=== PATIENT | female | born 1960 | race Caucasian/White ===

== ENCOUNTER 2018-07-03 23:04 | Outpatient (CLI) | payer OTHER ==
--- NOTE | 2018-07-04 11:22 | DI ---
EXAM: Radiographs, right forearm HISTORY: Initial presentation for right arm trauma. COMPARISON: None available. TECHNIQUE: Two views. FINDINGS: Bone mineralization is decreased. Benign cystic change noted in the lunate. There is no fracture or dislocation. The joint spaces are maintained although there is mild marginal osteophyte formation at the humeral ulnar joint. Mild elevation of the anterior fat pad noted. No focal soft t issue abnormality is seen. IMPRESSION: Possible elbow joint effusion without fracture or dislocation.
--- NOTE | 2018-07-04 11:22 | DI ---
EXAM: Right elbow two-view HISTORY: Injury COMPARISON: None FINDINGS: No fracture or dislocation identified. Mild osteoarthritis of the elbow. Enthesopathy of the lateral condyle. The alignment is normal. Possible anterior sail sign, representing possible rodney nt effusion. IMPRESSION: 1. No fracture dislocation identified. Possible joint effusion. Recommend short-term radiographic fo llow-up if symptoms persist. 2. Mild osteoarthritis
--- NOTE | 2018-07-04 11:33 | DI ---
EXAM: Radiographs, right wrist HISTORY: Initial presentation for right wrist injury. COMPARISON: None available. TECHNIQUE: Two views. FINDINGS: The bones are demineralized. Benign cystic change seen in the lunate. No acute fracture or dislocation identified. Moderate osteoarthritic changes present at the STT and first CMC joint wi th more mild changes elsewhere. No localized soft tissue abnormality detected. IMPRESSION: No fracture or dislocation.
== END 2018-07-03 23:05 | disposition home or self-care (01) ==
LOC: RAD 23:04
DX: S69.91XA Unspecified injury of right wrist, hand and finger(s), initial encounter (principal); S59.901A Unspecified injury of right elbow, initial encounter; S59.911A Unspecified injury of right forearm, initial encounter